=== PATIENT | female | born 1995 | race African-American/Black ===

== ENCOUNTER 2016-05-21 10:40 | Emergency (ER) | payer OTHER ==
[~2016-05-21] VITALS: Ht 165.1 cm; Wt 105.0 kg
[2016-05-21 10:42] VITALS: BP 139/61; PULSE 92; RESP 16; TEMP 98.2; O2SAT 99
[2016-05-21] MEDS ORDERED: NAPR220T95 PO (11:06)
[2016-05-21 11:27] LABS: AUTOMATED NEUTROPHIL # 6.4 TH/MM3 (1.8-7.7); BASOPHIL % 0.5 % (0.0-2.0); EOSINOPHIL # 0.1 TH/MM3 (0-0.4); EOSINOPHIL % 1.1 % (0.0-4.0); HEMATOCRIT 30.3 % (35.0-46.0); LYMPH % 17.7 % (9.0-44.0); LYMPHOCYTE # 1.6 TH/MM3 (1.0-4.8); MEAN CELL VOLUME 71.5 FL (80.0-100.0); MEAN CORPUSCULAR HEMOGLOBIN 22.5 PG (27.0-34.0); MEAN CORPUSCULAR HGB CONC 31.5 % (32.0-36.0); MONO % 8.5 % (0.0-8.0); NEUT % 72.2 % (16.0-70.0); PLATELET COUNT 230 TH/MM3 (150-450); RED BLOOD COUNT 4.24 MIL/MM3 (4.00-5.30); RED CELL DISTRIBUTION WIDTH 18.1 % (11.6-17.2); WHITE BLOOD COUNT 8.9 TH/MM3 (4.0-11.0)
[2016-05-21 11:30] LABS: HEMO FLAGS AUTO DIFF
[2016-05-21] MEDS ORDERED: SODIUM CHLOR 0.9% 1000 ML INJ 1,000 ML IV ONE (11:30)
[2016-05-21] MEDS ORDERED: ONDANSETRON HCL 4 MG/2 ML VIAL IV ONE (11:30)
[2016-05-21 11:35] LABS: BACTERIA, URINE MOD /hpf; BLOOD, URINE NEG (NEG); COMMENT (UR) CULTURE INDICATED; CULTURE IF INDICATED CULTURE INDICATED; GLUCOSE,URINE NEG (NEG); KETONE, URINE TRACE mg/dL (NEG); MUCUS URINE MANY /lpf (OCC); NITRITE,URINE NEG (NEG); PH, URINE 5.5 (5.0-8.5); SQUAMOUS EPITHELIAL CELL URINE 1 /hpf (0-5); URINE COLOR YELLOW (YELLW/STRAW)
[2016-05-21] MEDS ORDERED: ZOFR4TAB3 SL (11:43)
--- NOTE | 2016-05-21 11:43 | PD ---
HPI Chief Complaint: GI Complaint Time Seen by Provider: 11:06 Travel History International Travel<30 days: No Contact w/Intl Traveler<30days: No Traveled to known affect area: No History of Present Illness HPI The 20-year-old young woman presents emergent department with nausea vomiting for about a week now. Some mild crampy diffuse abdominal pain. No diarrhea. No fevers or chills. No vaginal discharge or vaginal bleeding. Last menstrual period was a couple weeks ago. No urinary symptoms. No other complaints. She has been no more workout routines recently and thinks this may contribute. She vomited a couple times today. History Past Medical History Medical History: Denies Significant Hx Tetanus Vaccination: < 5 Years LMP: 04/28/16 Social History Alcohol Use: No Tobacco Use: No Allergies-Medications (Allergen,Severity, Reaction): Coded Allergies: No Known Allergies (Unverified , 05/21/16) Reported Meds & Prescriptions Reported Meds & Active Scripts Active Zofran Odt (Ondansetron Odt) 4 Mg Tab 4 Mg SL Q8HR PRN May substitute non-ODT form. Reported Aleve (Naproxen Sodium) 220 Mg Tab 220 Mg PO BID PRN Review of Systems Except as stated in HPI: all other systems reviewed are Neg Physical Exam Narrative GENERAL: 20-year-old young woman, no acute distress. SKIN: Warm and dry. HEAD: Atraumatic. Normocephalic. EYES: Pupils equal and round. No scleral icterus. No injection or drainage. ENT: No nasal bleeding or discharge. Mucous membranes pink and moist. NECK: Trachea midline. No JVD. CARDIOVASCULAR: Regular rate and rhythm. No murmur appreciated. RESPIRATORY: No accessory muscle use. Clear to auscultation. Breath sounds equal bilaterally. GASTROINTESTINAL: Abdomen is obese and soft. No tenderness. MUSCULOSKELETAL: No obvious deformities. No clubbing. No cyanosis. No edema. NEUROLOGICAL: Awake and alert. No obvious cranial nerve deficits. Motor grossly within normal limits. Normal speech. PSYCHIATRIC: Appropriate mood and affect; insight and judgment normal. Data Data Last Documented VS Vital Signs Date Time Temp Pulse Resp B/P Pulse Ox O2 Delivery O2 Flow Rate FiO2 05/21/16 10:42 98.2 92 16 139/61 99 Room Air Orders Complete Blood Count With Diff (05/21/16 11:01) Comprehensive Metabolic Panel (05/21/16 11:01) Lipase (05/21/16 11:01) Urinalysis - C+S If Indicated (05/21/16 11:01) Iv Access Insert/Monitor (05/21/16 11:01) Ed Urine Pregnancytest Poc (05/21/16 11:01) Ondansetron Inj (Zofran Inj) (05/21/16 11:30) Sodium Chlor 0.9% 1000 Ml Inj (Ns 1000 M (05/21/16 11:30) Urine Culture (05/21/16 11:15) Labs Laboratory Tests Test 05/21/16 11:15 White Blood Count 8.9 TH/MM3 Red Blood Count 4.24 MIL/MM3 Hemoglobin 9.5 GM/DL Hematocrit 30.3 % Mean Corpuscular Volume 71.5 FL Mean Corpuscular Hemoglobin 22.5 PG Mean Corpuscular Hemoglobin 31.5 % Concent Red Cell Distribution Width 18.1 % Platelet Count 230 TH/MM3 Mean Platelet Volume 8.4 FL Neutrophils (%) (Auto) 72.2 % Lymphocytes (%) (Auto) 17.7 % Monocytes (%) (Auto) 8.5 % Eosinophils (%) (Auto) 1.1 % Basophils (%) (Auto) 0.5 % Neutrophils # (Auto) 6.4 TH/MM3 Lymphocytes # (Auto) 1.6 TH/MM3 Monocytes # (Auto) 0.8 TH/MM3 Eosinophils # (Auto) 0.1 TH/MM3 Basophils # (Auto) 0.0 TH/MM3 CBC Comment AUTO DIFF Differential Comment AUTO DIFF CONFIRMED Urine Color YELLOW Urine Turbidity HAZY Urine pH 5.5 Urine Specific [place] 1.024 Urine Protein 30 mg/dL Urine Glucose (UA) NEG mg/dL Urine Ketones TRACE mg/dL Urine Occult Blood NEG Urine Nitrite NEG Urine Bilirubin NEG Urine Urobilinogen 2.0 MG/DL Urine Leukocyte Esterase NEG Urine RBC 5 /hpf Urine WBC 3 /hpf Urine Squamous Epithelial 1 /hpf Cells Urine Amorphous Sediment RARE Urine Bacteria MOD /hpf Urine Mucus MANY /lpf Microscopic Urinalysis Comment CULTURE INDICATED Sodium Level 143 MEQ/L Potassium Level 3.6 MEQ/L Chloride Level 110 MEQ/L Carbon Dioxide Level 23.8 MEQ/L Anion Gap 9 MEQ/L Blood Urea Nitrogen 7 MG/DL Creatinine 0.71 MG/DL Estimat Glomerular Filtration 106 ML/MIN Rate Random Glucose 86 MG/DL Calcium Level 8.5 MG/DL Total Bilirubin 0.3 MG/DL Aspartate Amino Transf 13 U/L (AST/SGOT) Alanine Aminotransferase 17 U/L (ALT/SGPT) Alkaline Phosphatase 49 U/L Total Protein 7.5 GM/DL Albumin 3.2 GM/DL Lipase 62 U/L [facility] Medical Decision Making Medical Screen Exam Complete: Yes Emergency Medical Condition: Yes Interpretation(s) LABS: CBC remarkable for mild anemia CMP unremarkable Lipase normal UA unremarkable, 5 reds. Many bacteria sent for culture. Differential Diagnosis UTI, stress, intense workout, other Narrative Course 20-year-old young woman, nausea vomiting, looks well. Benign exam. We'll check screening labs. May be related to her working out. Recommend supportive treatment. Diagnosis Primary Impression: Nausea & vomiting Qualified Code: R11.2 - Nausea and vomiting, intractability of vomiting not specified, unspecified vomiting type Additional Instructions: Use Zofran as needed for nausea or vomiting. Follow-up with your primary doctor if you're not feeling better in the next one to 2 weeks. Return to the emergency department for any worsening abdominal pain, fevers, or any other new or worsening symptoms. Med/Other Pt SpecificInfo: Prescription(s) given Scripts Ondansetron Odt (Zofran Odt)4 Mg Tab4 Mg SL Q8HR PRN (Nausea/Vomiting) #15 TAB May substitute non-ODT form. Prov:Srikanth Donovan MD 05/21/16 Disposition: 01 DISCHARGE HOME Condition: Stable Srikanth Donovan MD May 21, 2016 11:43
[2016-05-21 11:49] LABS: ANION GAP 9 MEQ/L (5-15); AST (GOT) 13 U/L (16-38); BICARBONATE 23.8 MEQ/L (21.0-32.0); BLOOD UREA NITROGEN 7 MG/DL (7-18); CHLORIDE 110 MEQ/L (98-107); GLOMERULAR FILTRATION RATE 106 ML/MIN (>89); POTASSIUM 3.6 MEQ/L (3.5-5.1); SODIUM (NA) 143 MEQ/L (136-145)
[2016-05-21 11:52] LABS: ALKALINE PHOSPHATASE 49 U/L (45-117); ALT (GPT) 17 U/L (9-42); TOTAL BILIRUBIN ADULT 0.3 MG/DL (0.2-1.0)
[2016-05-21 12:21] LABS: SCAN/DIFF AUTO DIFF CONFIRMED
== END 2016-05-21 13:11 | disposition home or self-care (01) ==
LOC: NEPB 10:40
DX: R11.2 Nausea with vomiting, unspecified (principal); B96.89 Other specified bacterial agents as the cause of diseases classified elsewhere
CPT/HCPCS: 80053; 81001; 83690; 84703; 85025; 87086; 96361; 96374; 99284; J2405; J7030

== ENCOUNTER 2016-06-12 23:28 | Emergency (ER) | payer MEDICAID, OTHER ==
[~2016-06-12] VITALS: Ht 165.1 cm; Wt 105.0 kg
[~2016-06-12 23:28] MED LIST: NAPR220T95 PO; ZOFR4TAB3 SL
[2016-06-12 23:30] VITALS: BP 116/59; PULSE 74; RESP 16; TEMP 98.6; O2SAT 100
[2016-06-13] MEDS ORDERED: METOCLOPRAMIDE HCL 10 MG/2 ML VIAL IV PUSH ONE (00:15)
[2016-06-13] MEDS ORDERED: SODIUM CHLORIDE 0.9% FLUSH 10 ML FLUSH IV FLUSH PRN (00:15)
[2016-06-13] MEDS ORDERED: SODIUM CHLOR 0.9% 1000 ML INJ 1,000 ML IV SCH (00:15)
--- NOTE | 2016-06-13 00:26 | PD ---
HPI Chief Complaint: Headache Time Seen by Provider: 00:09 Travel History International Travel<30 days: No Contact w/Intl Traveler<30days: No Traveled to known affect area: No History of Present Illness HPI 21-year-old female here for evaluation of headaches. The patient complains of intermittent headaches for the last 2 weeks. Pain is mainly right/frontal, described as pulsatile/sharp, intermittent, sometimes associated with photophobia. No fevers or chills. No neck pain or stiffness. She is in college and reports being under a lot of stress lately. She did have some blurriness in vision, however this resolved when she put her glasses on. No paresthesias or motor deficits. She has been using Tylenol and Excedrin for her headaches which seem to help. She currently has a right frontal headache that is 7 out of 10. PFSH Past Medical History Medical History: Denies Significant Hx Diminished Hearing: No Tetanus Vaccination: < 5 Years ?: Not LMP: 05/24/16 : 0 Past Surgical History Eye Surgery: Yes (laser eye surgery) Social History Alcohol Use: No Tobacco Use: No Substance Use: No Allergies-Medications (Allergen,Severity, Reaction): Coded Allergies: No Known Allergies (Unverified , 06/12/16) Reported Meds & Prescriptions Reported Meds & Active Scripts Active Zofran Odt (Ondansetron Odt) 4 Mg Tab 4 Mg SL Q8HR PRN May substitute non-ODT form. Review of Systems Except as stated in HPI: all other systems reviewed are Neg Physical Exam Narrative GENERAL: Well-developed, well-nourished, comfortable, no acute distress. SKIN: Focused skin assessment warm/dry. HEAD: Atraumatic. Normocephalic. EYES: Pupils equal, round, 3 mm, reactive to light. No scleral icterus. No injection or drainage. ENT: Mucous membranes pink and moist. NECK: Trachea midline. No JVD. No nuchal rigidity. CARDIOVASCULAR: Regular rate and rhythm. No murmur appreciated. RESPIRATORY: No accessory muscle use. Clear to auscultation. Breath sounds equal bilaterally. GASTROINTESTINAL: Abdomen soft, non-tender, nondistended. MUSCULOSKELETAL: No obvious deformities. No clubbing. No cyanosis. No edema. NEUROLOGICAL: Awake and alert. No obvious cranial nerve deficits. Motor grossly within normal limits. Normal speech. PSYCHIATRIC: Appropriate mood and affect; insight and judgment normal. Data Data Last Documented VS Vital Signs Date Time Temp Pulse Resp B/P Pulse Ox O2 Delivery O2 Flow Rate FiO2 06/12/16 23:30 98.6 74 16 116/59 100 Room Air Orders Complete Blood Count With Diff (06/13/16 00:15) Comprehensive Metabolic Panel (06/13/16 00:15) Urinalysis - C+S If Indicated (06/13/16 00:15) Iv Access Insert/Monitor (06/13/16 00:15) Ecg Monitoring (06/13/16 00:15) Oximetry (06/13/16 00:15) Sodium Chlor 0.9% 1000 Ml Inj (Ns 1000 M (06/13/16 00:15) Sodium Chloride 0.9% Flush (Ns Flush) (06/13/16 00:15) Ed Urine Pregnancytest Poc (06/13/16 00:15) Metoclopramide Inj (Reglan Inj) (06/13/16 00:15) Ct Brain W/O Iv Contrast(Rout) (06/13/16 ) Ketorolac Inj (Toradol Inj) (06/13/16 00:45) MDM Medical Decision Making Medical Screen Exam Complete: Yes Emergency Medical Condition: Yes Differential Diagnosis Tension headache, cluster headache, migraine headache, intracranial abnormality , idiopathic intracranial hypertension, SAH/meningitis/encephalitis unlikely Narrative Course Vital signs show heart rate 74, blood pressure 116/59, pulse ox 100% on room air , oral temp of 98.6F. At approximately 1:00 AM at the end of my shift the patient was signed out to my PA Chivo Rothman who will follow-up with labs and imaging studies and will disposition the patient appropriately. If everything is negative, the patient can be safely discharged home with outpatient follow-up. She is overall well- appearing. Jani Simon MD Jun 13, 2016 00:26
[2016-06-13] MEDS ORDERED: KETOROLAC TROMETHAMINE 30 MG/ML (IVP) VIAL IV PUSH ONE (00:45)
[2016-06-13 00:59] LABS: AUTOMATED NEUTROPHIL # 6.2 TH/MM3 (1.8-7.7); BASOPHIL # 0.1 TH/MM3 (0-0.2); BASOPHIL % 1.7 % (0.0-2.0); EOSINOPHIL # 0.1 TH/MM3 (0-0.4); EOSINOPHIL % 0.8 % (0.0-4.0); HEMATOCRIT 30.4 % (35.0-46.0); LYMPH % 11.6 % (9.0-44.0); LYMPHOCYTE # 0.9 TH/MM3 (1.0-4.8); MEAN CELL VOLUME 71.7 FL (80.0-100.0); MEAN CORPUSCULAR HEMOGLOBIN 22.6 PG (27.0-34.0); MEAN CORPUSCULAR HGB CONC 31.6 % (32.0-36.0); MONO % 6.4 % (0.0-8.0); NEUT % 79.5 % (16.0-70.0); PLATELET COUNT 191 TH/MM3 (150-450); RED BLOOD COUNT 4.24 MIL/MM3 (4.00-5.30); RED CELL DISTRIBUTION WIDTH 18.2 % (11.6-17.2); WHITE BLOOD COUNT 7.8 TH/MM3 (4.0-11.0)
--- NOTE | 2016-06-13 01:01 | RADRPT ---
EXAM DATE/TIME: 06/13/2016 00:47 [place] COMPARISON: No previous studies available for comparison. INDICATIONS : Headache on and off for two weeks. Worse today. RADIATION DOSE: 56.35 CTDIvol (mGy) MEDICAL HISTORY : None SURGICAL HISTORY : None. ENCOUNTER: Initial ACUITY: 2 weeks PAIN SCALE: 8/10 LOCATION: cranial TECHNIQUE: Multiple contiguous axial images were obtained of the head. Using automated exposure control and adj ustment of the mA and/or kV according to patient size, radiation dose was kept as low as reasonably a chievable to obtain optimal diagnostic quality images. FINDINGS: There is no evidence for intracranial hemorrhage, mass effect, mass lesions, edema, or extra-axial fl uid collections. The visualized bony structures appear intact. The ventricles are normal size for t he patient's age. There are no signs of acute infarction for technique. CONCLUSION: Unremarkable study. Rachna Santillan MD on June 13, 2016 at 0:59 Board Certified Radiologist. This report was verified electronically.
[2016-06-13 01:03] LABS: HEMO FLAGS AUTO DIFF
[2016-06-13 01:10] LABS: BLOOD, URINE NEG (NEG); COMMENT (UR) CULT NOT INDICATED; CULTURE IF INDICATED CULT NOT INDICATED; GLUCOSE,URINE NEG (NEG); KETONE, URINE NEG (NEG); MUCUS URINE FEW /lpf (OCC); NITRITE,URINE NEG (NEG); PH, URINE 5.5 (5.0-8.5); URINE COLOR YELLOW (YELLW/STRAW)
[2016-06-13 01:21] LABS: OVALOCYTES 1+ (NORMAL); PLATELET ESTIMATE SMEAR NORMAL (NORMAL); PLATELET MORPHOLOGY NORMAL (NORMAL)
[2016-06-13 01:22] LABS: SCAN/DIFF AUTO DIFF CONFIRMED
[2016-06-13 01:30] LABS: ALT (GPT) 13 U/L (9-42); ANION GAP 7 MEQ/L (5-15); AST (GOT) 7 U/L (16-38); BICARBONATE 24.7 MEQ/L (21.0-32.0); BLOOD UREA NITROGEN 10 MG/DL (7-18); CHLORIDE 110 MEQ/L (98-107); GLOMERULAR FILTRATION RATE 143 ML/MIN (>89); POTASSIUM 3.8 MEQ/L (3.5-5.1); SODIUM (NA) 142 MEQ/L (136-145)
--- NOTE | 2016-06-13 01:30 | PD ---
Physical Exam Time Seen by Provider: 01:10 Data Data Last Documented VS Vital Signs Date Time Temp Pulse Resp B/P Pulse Ox O2 Delivery O2 Flow Rate FiO2 06/12/16 23:30 98.6 74 16 116/59 100 Room Air Orders Complete Blood Count With Diff (06/13/16 00:15) Comprehensive Metabolic Panel (06/13/16 00:15) Urinalysis - C+S If Indicated (06/13/16 00:15) Iv Access Insert/Monitor (06/13/16 00:15) Ecg Monitoring (06/13/16 00:15) Oximetry (06/13/16 00:15) Sodium Chlor 0.9% 1000 Ml Inj (Ns 1000 M (06/13/16 00:15) Sodium Chloride 0.9% Flush (Ns Flush) (06/13/16 00:15) Ed Urine Pregnancytest Poc (06/13/16 00:15) Metoclopramide Inj (Reglan Inj) (06/13/16 00:15) Ct Brain W/O Iv Contrast(Rout) (06/13/16 ) Ketorolac Inj (Toradol Inj) (06/13/16 00:45) Labs Laboratory Tests Test 06/13/16 06/13/16 00:30 00:52 Urine Color YELLOW Urine Turbidity CLOUDY Urine pH 5.5 Urine Specific [place] 1.032 Urine Protein TRACE mg/dL Urine Glucose (UA) NEG mg/dL Urine Ketones NEG mg/dL Urine Occult Blood NEG Urine Nitrite NEG Urine Bilirubin NEG Urine Urobilinogen LESS THAN 2.0 MG/DL Urine Leukocyte Esterase NEG Urine RBC 2 /hpf Urine Amorphous Sediment OCC Urine Mucus FEW /lpf Microscopic Urinalysis Comment CULT NOT INDICATED White Blood Count 7.8 TH/MM3 Red Blood Count 4.24 MIL/MM3 Hemoglobin 9.6 GM/DL Hematocrit 30.4 % Mean Corpuscular Volume 71.7 FL Mean Corpuscular Hemoglobin 22.6 PG Mean Corpuscular Hemoglobin 31.6 % Concent Red Cell Distribution Width 18.2 % Platelet Count 191 TH/MM3 Mean Platelet Volume 9.3 FL Neutrophils (%) (Auto) 79.5 % Lymphocytes (%) (Auto) 11.6 % Monocytes (%) (Auto) 6.4 % Eosinophils (%) (Auto) 0.8 % Basophils (%) (Auto) 1.7 % Neutrophils # (Auto) 6.2 TH/MM3 Lymphocytes # (Auto) 0.9 TH/MM3 Monocytes # (Auto) 0.5 TH/MM3 Eosinophils # (Auto) 0.1 TH/MM3 Basophils # (Auto) 0.1 TH/MM3 CBC Comment AUTO DIFF Differential Comment AUTO DIFF CONFIRMED Platelet Estimate NORMAL Platelet Morphology Comment NORMAL Ovalocytes 1+ Sodium Level 142 MEQ/L Potassium Level 3.8 MEQ/L Chloride Level 110 MEQ/L Carbon Dioxide Level 24.7 MEQ/L Anion Gap 7 MEQ/L Blood Urea Nitrogen 10 MG/DL Creatinine 0.64 MG/DL Estimat Glomerular Filtration 143 ML/MIN Rate Random Glucose 83 MG/DL Calcium Level 8.7 MG/DL Total Bilirubin 0.2 MG/DL Aspartate Amino Transf 7 U/L (AST/SGOT) Alanine Aminotransferase 13 U/L (ALT/SGPT) Alkaline Phosphatase 64 U/L Total Protein 7.3 GM/DL Albumin 3.1 GM/DL MDM Medical Record Reviewed: Yes Supervised Visit with TING: No Narrative Course I assumed care of this patient pending lab work and imaging studies. Briefly this is a 21-year-old female who presents for evaluation of intermittent headaches. She reports over the past 2 weeks she has had occasional right frontal pulsatile headaches with associated mild photophobia. She reports that she takes Excedrin which tends to help with the headache. The headache typically only lasts about an hour and then resolves. The headache is not thunderclap in intensity. She has had no blurred vision, nausea or vomiting, recent illness, fevers or chills. She does note that she is currently in college and she is under some stress because of finals. Physical examination is unremarkable, she has a normal neurologic examination. Funduscopic examination was attempted, unable to visualize optic disks. Her symptoms aren' t suggestive of pseudotumor cerebri. Her description of pulsatile frontal unilateral headache with photophobia certainly suggestive of a migraine. She is currently not experiencing any headache upon my examination. Laboratory does reveal a normocytic anemia, essentially unchanged from lab work last month. Denies any known history of anemia, denies any acute bleeding, denies any heavy menstrual periods most likely this represents a chronic mild iron deficiency anemia. I will write the patient is short course of iron supplementation and recommend following up as an outpatient with primary care physician and she is agreeable. Diagnosis Primary Impression: Headache Qualified Code: R51 - Nonintractable headache, unspecified chronicity pattern , unspecified headache type Additional Instruction: Stay well-hydrated and well-nourished. Follow-up with primary care and return for any acutely new or worsening symptoms. Med/Other Pt SpecificInfo: Prescription(s) given Scripts Ferrous Sulfate 325 Mg [id number] Mg PO DAILY #30 TAB Ref 0 Prov:Jani Simon MD 06/13/16 Disposition: 01 DISCHARGE HOME Condition: Stable Chivo Rothman Jun 13, 2016 01:30
[2016-06-13 01:32] LABS: ALKALINE PHOSPHATASE 64 U/L (45-117); TOTAL BILIRUBIN ADULT 0.2 MG/DL (0.2-1.0)
[2016-06-13] MEDS ORDERED: FERR325T PO (01:36)
== END 2016-06-13 01:56 | disposition home or self-care (01) ==
LOC: NEPD 23:28
DX: R51 Headache (principal)
CPT/HCPCS: 70450; 80053; 81001; 84703; 85025; 96374; 96375; 99284; J1885; J2765; J7030

== ENCOUNTER 2017-02-03 15:09 | Emergency (ER) | payer OTHER, MEDICAID ==
[~2017-02-03 15:09] MED LIST changes: +FERR325T PO; -NAPR220T95 PO
[2017-02-03 15:11] VITALS: BP 138/90; PULSE 78; RESP 17; TEMP 98.7; O2SAT 100
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
[2017-02-03] MEDS ORDERED: IBUPROFEN 800 MG TAB PO ONE (15:45)
[2017-02-03] MEDS ORDERED: ROBA500T PO (15:45)
== END 2017-02-03 16:18 | disposition home or self-care (01) ==
LOC: NEPK 15:09
DX: S00.03XA Contusion of scalp, initial encounter (principal); M62.838 Other muscle spasm; M54.9 Dorsalgia, unspecified; V43.52XA Car driver injured in collision with other type car in traffic accident, initial encounter
CPT/HCPCS: 99283